=== PATIENT | male | born 1985 | race Asian ===

== ENCOUNTER 2020-11-15 19:25 | Emergency (ER) | payer OTHER, SELFPAY ==
[2020-11-15 19:47] VITALS: BP 139/92; PULSE 75; RESP 18; TEMP 36.3; O2SAT 96; BMI 34.9
[2020-11-15 21:27] VITALS: BMI 35.6
--- NOTE | 2020-11-15 22:31 | ED.ANIMALBIT ---
HPI - Animal Bite General Chief Complaint: Animal Bite Stated Complaint: dog bite/work related Time Seen by Provider: 11/15/20 21:30 Source: patient Mode of arrival: ambulatory Limitations: no limitations History of Present Illness HPI narrative: Patient presents to ED for dog bite to right leg. 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 Patient was informed through his employer that the client's dog was up-to-date with rabies vaccine as per the client, but patient does not trust or believe the client and would like to be treated for dog bite and receive rabies prophylaxis. Related Data Previous Rx's Medication Instructions Recorded amoxicillin 500 mg-potassium 1 tab PO Q12H 10 Days #20 tab 11/15/20 clavulanate 125 mg tablet (Augmentin) Allergies Allergy/AdvReac Type Severity Reaction Status Date / Time No Known Allergies Allergy Verified 11/15/20 19:54 Review of Systems Review of Systems: Yes all other systems are reviewed and are negative Constitutional: Constitutional: Reports as per HPI and Reports no additional constitutional complaints Eyes: Eyes: Reports as per HPI and Reports no additional eye complaints ENT: Reports system reviewed and no additional complaints, except as documented and Reports as per HPI Cardiovascular: Cardiovascular: Reports as per HPI and Reports no additional cardiovascular complaints Respiratory: Respiratory: Reports as per HPI and Reports no additional respiratory complaints Gastrointestinal: Gastrointestinal: Reports as per HPI and Reports no additional gastrointestinal complaints Genitourinary: Genitourinary: Reports no additional male genitourinary complaints and Reports as per HPI Musculoskeletal: Musculoskeletal: Reports no additional musculoskeletal complaints and Reports as per HPI Comments: Dog bite right leg Neurologic: Reports system reviewed and no additional complaints, except as documented and Reports as per HPI Psychiatric: Psychiatric: Reports no additional psychiatric complaints and Reports as per HPI [facility] Past Medical History Medical History (Updated 11/15/20 @ 22:37 by DEMARCUS Mcallister) No known health problems Surgical History (Updated 11/15/20 @ 19:51 by Matilde Coelho) History of appendectomy Social History Social History Advance Directives: No Physical Exam Vital Signs: Vital Signs: Last Vital Signs Temp 97.3 F 11/15/20 19:47 Pulse 75 11/15/20 19:47 Resp 18 11/15/20 19:47 BP 139/92 H 11/15/20 19:47 Pulse Ox 96 11/15/20 19:47 Body Mass Index 35.6 Const: General: cooperative, healthy appearing, comfortable, no acute distress, well developed, alert, awake and Physically active Orientation/consciousness: patient oriented x3 HENMT: Head: Yes normal to inspection, Yes No palpable skull fracture present, Yes normocephalic and Yes atraumatic Eyes: General: appearance normal, both eyes and all related structures Neck: Neck: Yes normal visual inspection, Yes full ROM, Yes no lymphadenopathy, Yes trachea midline, Yes supple and No tender Chest: Chest palpation & inspection: normal inspection of the chest and normal palpation of entire chest wall Resp: Effort & Inspection: normal respiratory effort and able to speak in complete sentences Auscultation: clear to auscultation bilaterally Cardio: Jugular venous distension: no JVD Heart sounds: S1 normal heart sound present and S2 normal heart sound present GI: Inspection: Yes normal to inspection and No abdominal wall ecchymosis Palpation (GI): Soft to palpation, not firm, nontender, no guarding and not rigid : General: No CVA tenderness and Yes no CVA tenderness Back/Spine/Pelvis: Back: no CVA tenderness, No CVA tenderness and No back tenderness Skin: General skin exam: no rashes or lesions noted and elasticity normal Full body images: 1. Superficial abrasion. No laceration. Indicated. Neuro: General: patient oriented x3, gait normal and CN's II-XI intact bilaterally Extrem: General: Yes normal to inspection and Yes full ROM Psych: Appearance: grossly normal, well kempt and not disheveled Course Course Course Narrative: Patient will receive rabies vaccine and immunoglobulin. Discharge antibiotics Reevaluation(s) Reevaluation #1: Patient discharged with antibiotics Time: 22:36 MDM - Animal Bite MDM Narrative Medical decision making narrative: Dog bite Discharge Plan Discharge Clinical Impression: Dog bite Patient Disposition: Home, Self-Care Instructions: Animal Bite (ED) Additional Instructions: You will be discharged with antibiotics. Please return to the ED as instructed by nurse for days to receive rabies vaccine injection. Return to ED for any redness, swelling, pus discharge, foul odor, fever, chills, melena the red streaks, any other concerning symptoms. Prescriptions: New amoxicillin-pot clavulanate [Augmentin] 500-125 mg tablet 1 tab PO Q12H 10 Days Qty: 20 RF: 0 Interventions: ED Discharge Assessment Last Done: 11/15/20 23:00 Discharge Date/Time: 11/15/20 23:00 Print Language: Faroese
[2020-11-15] MEDS: Rabies Vaccine (PCEC)/PF 1 ML VIAL IM (22:42)
[2020-11-15] MEDS: Diphth,Pertus(ACell),Tet Adult 0.5 ML SYRINGE IM (22:44)
[2020-11-15] MEDS: Rabies Immune Globulin/PF 1,500 UNIT/5 ML VIAL 1940 UNIT IM (22:45)
== END 2020-11-15 23:00 | disposition home or self-care (01) ==
PROVIDERS: Emergency Provider Emergency Medicine Emergency Medical Services
DX: S81.851A Open bite, right lower leg, initial encounter (principal); M79.604 Pain in right leg; W54.0XXA Bitten by dog, initial encounter; Y93.9 Activity, unspecified; Y92.009 Unspecified place in unspecified non-institutional (private) residence as the place of occurrence of the external cause; Y99.9 Unspecified external cause status
CPT/HCPCS: 90375; 90471; 90472; 90675; 90715; 96372; 99284

== ENCOUNTER 2020-11-18 07:17 | Outpatient (REF) | payer OTHER, SELFPAY | END 2020-11-18 07:18 | disposition home or self-care (01) | LOC: HO.MDS 07:17 | PROVIDERS: Visit Provider Physician Assistant | DX: Z29.14 Encounter for prophylactic rabies immune globulin (principal); S80.871D Other superficial bite, right lower leg, subsequent encounter; W54.0XXD Bitten by dog, subsequent encounter; Z20.3 Contact with and (suspected) exposure to rabies | CPT/HCPCS: 90471; 90675 ==

== ENCOUNTER 2020-11-22 07:32 | Outpatient (REF) | payer OTHER, SELFPAY | END 2020-11-22 07:33 | disposition home or self-care (01) | LOC: HO.MDS 07:32 | PROVIDERS: Visit Provider Physician Assistant | DX: Z29.14 Encounter for prophylactic rabies immune globulin (principal); S80.871D Other superficial bite, right lower leg, subsequent encounter; W54.0XXD Bitten by dog, subsequent encounter; Z20.3 Contact with and (suspected) exposure to rabies | CPT/HCPCS: 90471; 90675 ==

== ENCOUNTER 2020-11-29 07:26 | Outpatient (REF) | payer OTHER, SELFPAY | END 2020-11-29 07:27 | disposition home or self-care (01) | LOC: HO.MDS 07:26 | PROVIDERS: Visit Provider Physician Assistant | DX: Z29.14 Encounter for prophylactic rabies immune globulin (principal); S81.851D Open bite, right lower leg, subsequent encounter; W54.0XXD Bitten by dog, subsequent encounter; Z20.3 Contact with and (suspected) exposure to rabies | CPT/HCPCS: 90471; 90675 ==

== ENCOUNTER 2021-07-30 01:43 | Emergency (ER) | payer BC, SELFPAY ==
[2021-07-30 01:58] VITALS: BP 137/100; PULSE 84; RESP 14; TEMP 36.7; O2SAT 98; BMI 36.6
--- NOTE | 2021-07-30 03:26 | ED_ITS ---
HPI - Ear Problem General Chief complaint: Ear Problems Stated complaint: R Ear pain Time Seen by Provider: 07/30/21 03:26 Source: patient Mode of arrival: ambulatory History of Present Illness HPI Narrative: 35-year-old male presents with right ear fullness and muffled hearing after his was helping him clean his ear out with a Q-tip. He denies any fever, chills, sore throat. Related Data Previous Rx's Medication Instructions Recorded amoxicillin 500 mg-potassium 1 tab PO Q12H 10 Days #20 tab 11/15/20 clavulanate 125 mg tablet (Augmentin) Allergies Allergy/AdvReac Type Severity Reaction Status Date / Time No Known Allergies Allergy Verified 11/15/20 19:54 Review of Systems Review of Systems: Pertinent positives and negatives as stated in HPI 10 point review of systems is otherwise negative. PMFSH Past Medical History Source: nursing notes reviewed Medical History No known health problems Surgical History History of appendectomy Social History Social History Alcohol intake: never Patient Tobacco Use Status: Never used Tobacco Use of substances other than those prescribed or required for medical reasons: No Advance Directives: No Advance Directives Information Provided: No Physical Exam Vital Signs: Vital Signs: Last Vital Signs Temp 98.1 F 07/30/21 01:58 Pulse 84 07/30/21 01:58 Resp 14 07/30/21 01:58 BP 137/100 H 07/30/21 01:58 Pulse Ox 98 07/30/21 01:58 BMI result Body Mass Index 36.6 VITAL SIGNS: Reviewed. GENERAL: Well developed, well nourished, in no acute distress. HEAD: Normocephalic/atraumatic EYES: PERRLA, EOMI EARS: LEFT Ext canals without abnormality, RIGHT Ext canals with abrasion to posterior aspect of the canal and noted cerumen has been pushed against the middle ear and unable to visualize TM on the right, TM on the left is without redness or bulging. NOSE: Nares patent bilateral OROPHARYNX: no oral lesions noted, posterior pharynx clear and non-erythematous without noted tonsillar enlargement/erythema/exudates NECK: Supple, no adenopathy LUNGS: Normal breath sounds. No adventitious sounds or accessory muscle use. SpO2<98> CARDIOVASCULAR: Regular rate and rhythm without noted murmurs ABDOMEN: Soft, non-tender, non-distended with bowel sounds. SKIN: Inspection of the skin reveals no rashes NEUROLOGIC: Alert and oriented x 4. Strength and sensation to light touch were grossly intact x 4. Course Course Course Narrative: 35-year-old male with history and clinical presentation consistent with right cerumen impaction, in addition there is injury to the right external canal and patient is not diabetic. Explained to patient that at this time it is best to wait for the canal to heal and then pursue more aggressive removal of the earwax at his primary care provider's office. Discharge Plan Discharge Clinical Impression: Cerumen impaction, Injury of external auditory canal Patient Disposition: Home, Self-Care Instructions: Carbamide Peroxide (Into the ear) Additional Instructions: 1. Recommend [id number] Tylenol/ibuprofen as needed for pain control. 2. Recommend gently rinsing your right ear with approximately 2 cc of the normal saline that you have been provided 1 today. 3. Follow-up with your primary care provider in the next 3-4 days for re- evaluation and removal of the ear wax on the right. 4. Recommend in the future using Debrox for control over ear wax production. Return to the ER for worsening symptoms. Prescriptions: No Action amoxicillin-pot clavulanate [Augmentin] 500-125 mg tablet 1 tab PO Q12H 10 Days Qty: 20 0RF
== END 2021-07-30 03:56 | disposition home or self-care (01) ==
PROVIDERS: Emergency Provider Student in an Organized Health Care Education/Training Program
DX: S00.411A Abrasion of right ear, initial encounter (principal); H61.21 Impacted cerumen, right ear; X58.XXXA Exposure to other specified factors, initial encounter; Y93.9 Activity, unspecified; Y92.9 Unspecified place or not applicable; Y99.9 Unspecified external cause status
CPT/HCPCS: 99282; 99284